=== PATIENT | female | born 1945 | race Caucasian/White ===

== ENCOUNTER 2016-11-25 14:41 | Inpatient (IN) | payer BC ==
[2016-11-25] MEDS ORDERED: SODIUM CHLORIDE 0.9% 1,000 ML ONE (14:57)
[2016-11-25] MEDS ORDERED: ALU/MAG/SIM 30 ML UDC PO PRN (18:15)
[2016-11-25] MEDS ORDERED: SALINE FLUSH 10 ML FLUSH PRN (18:15)
[2016-11-25] MEDS ORDERED: ONDANSETRON 4 MG VIAL IV PRN (18:15)
[2016-11-25] MEDS ORDERED: ACETAMINOPHEN 325 MG TAB PO PRN (18:15)
[2016-11-25] MEDS ORDERED: MAG HYDROX 30 ML UDC PO PRN (18:15)
[2016-11-25] MEDS ORDERED: SODIUM CHLOR 0.9% W/KCL 20MEQ 1,000 ML IV SCH (18:15)
[2016-11-25] MEDS ORDERED: MAGNEVIST 15ML IV ONE (19:30)
[2016-11-25 20:30] VITALS: BP_SYST 120; BP_SYST 132; RESP 18; TEMP 98
[2016-11-25] MEDS ORDERED: CARBIDOPA/LEVODOPA 25/100 TAB PO SCH (21:00)
[2016-11-25] MEDS: APIXABAN 5 MG TAB PO SCH (21:38)
[2016-11-25] MEDS: SACCHA BOULARDII 250MG CAP PO SCH (21:38)
[2016-11-25] MEDS: GABAPENTIN 400 MG CAP PO SCH (21:38)
[2016-11-25] MEDS: CLINDAMYCIN 300 MG CAP PO SCH (21:38)
[2016-11-25] MEDS: SALINE FLUSH 10 ML FLUSH SCH (21:46)
[2016-11-26] VITALS (7 sets, daily range): BP systolic 110–127; RESP 16–22; TEMP 97.6–98.4
[2016-11-26] MEDS ORDERED: SODIUM CHLORIDE 0.9% FLUSH BAG 500 ML IV SCH (06:00)
[2016-11-26] MEDS ORDERED: PANTOPRAZOLE 40 MG TAB PO SCH (07:00)
[2016-11-26] MEDS: CLINDAMYCIN 300 MG CAP PO SCH ×2 (09:20→16:24)
[2016-11-26] MEDS: SACCHA BOULARDII 250MG CAP PO SCH (09:20)
[2016-11-26] MEDS: GABAPENTIN 400 MG CAP PO SCH (09:20)
[2016-11-26] MEDS: SALINE FLUSH 10 ML FLUSH SCH (09:20)
[2016-11-26] MEDS: APIXABAN 5 MG TAB PO SCH (09:20)
[2016-11-26] MEDS ORDERED: TOPIRAMATE 25 MG TAB PO SCH (17:45)
== END 2016-11-26 20:11 | disposition home health service (06) | DRG 100 ==
LOC: ENRESERVDT → ENRESERVTM → ER 14:41 → EMR 18:11 → ENPENDDIS 18:11 → PCU 20:10
PROVIDERS: ADMIT Internal Medicine; ATTEND Internal Medicine
DX: R56.9 Unspecified convulsions (principal); J85.1 Abscess of lung with pneumonia; I26.99 Other pulmonary embolism without acute cor pulmonale; I95.9 Hypotension, unspecified; C83.38 Diffuse large B-cell lymphoma, lymph nodes of multiple sites; C18.9 Malignant neoplasm of colon, unspecified; J44.9 Chronic obstructive pulmonary disease, unspecified; G62.9 Polyneuropathy, unspecified; D64.9 Anemia, unspecified; Z86.718 Personal history of other venous thrombosis and embolism; Z79.01 Long term (current) use of anticoagulants; R26.9 Unspecified abnormalities of gait and mobility; E78.5 Hyperlipidemia, unspecified; G25.81 Restless legs syndrome; Z86.73 Personal history of transient ischemic attack (TIA), and cerebral infarction without residual deficits
CPT/HCPCS: 36415; 70450; 70553; 80048; 80053; 81001; 82553; 82947; 84146; 84484; 85025; 85610; 85730; 87088; 93005; 93880; 94799; 95819; 96360; 96361; 99255